=== PATIENT | female | born 1990 | race Hispanic/Latino ===

== ENCOUNTER 2017-03-31 21:44 | Emergency (ER) | payer OTHER ==
[~2017-03-31] VITALS: Ht 157.5 cm; Wt 78.0 kg
[~2017-03-31 21:44] MED LIST: AUGMENTIN875TAB PO; AZITHROMYCIN250 MG PO; CHOLESTYRAMINE4 G1 PO; IBUPROFEN200 MG OR; LORTAB 5 OR; MEDDOSEPAK PO; OMEGA 3340 MG OR; PRENATA7 OR; PROAIR HFA IN; PROVENTIL HFA IN; ZOFRAN ODT4 MG PO; ZPAK PO
[2017-03-31 23:17] LABS: HEMATOCRIT 39.3 % (37.0-47.0); HEMOGLOBIN 13.4 g/dl (12.0-16.0); IMMATURE GRANULOCYTES 0.3 % (0.0-1.0); MEAN CELL VOLUME 93.3 fL CALC (80.0-100.0); MEAN CORPUSCULAR HGB 31.8 pG CALC (26.0-32.0); MEAN CORPUSCULAR HGB CONC 34.1 g/L CALC (32.0-36.0); NEUT# 8.14 thou/uL (2.00-7.15); RED BLOOD COUNT 4.21 mill/uL (4.20-5.60)
[2017-03-31 23:26] LABS: URINE BILIRUBIN - DIPSTICK NEGATIVE (NEGATIVE); URINE BLOOD DIPSTICK LARGE (NEGATIVE); URINE CLARITY TURBID; URINE COLOR RED; URINE GLUCOSE - DIPSTICK NEGATIVE (NEGATIVE); URINE KETONE NEGATIVE (NEGATIVE); URINE LEUK ESTERASE TRACE (NEGATIVE); URINE NITRITE - DIPSTICK NEGATIVE (Negative); URINE PROTEIN - DIPSTICK 30 mg/dL (NEG-TRACE); URINE UROBILINOGEN - DIPSTICK 0.2 E.U./dL (0.2)
[2017-03-31 23:27] LABS: URINE BACTERIA FEW hpf; URINE RBC >100 RBC/hpf (0-5); URINE SQUAMOUS EPITHELIAL CELL MODERATE EPI/hpf (0-FEW)
[2017-03-31 23:32] LABS: ALBUMIN 4.7 g/dL (3.2-5.0); ALKALINE PHOSPHATASE 114 u/l (38-126); ANION GAP 17 (6-22 (CALC)); BILIRUBIN, TOTAL 0.3 mg/dL (0.0-1.4); BUN 10 mg/dL (7-17); BUN/CREATININE RATIO 21 (12-20 (CALC)); CALCIUM 9.7 mg/dL (8.4-10.2); CARBON DIOXIDE 24 mmol/l (22-30); CHLORIDE 105 mmol/l (95-108); CREATININE 0.5 mg/dL (0.5-1.0); GFR > 60 ML/MIN (>=60 (CALC)); GFR FOR AFR.AMER. > 60 ML/MIN (>=60 (CALC)); GLUCOSE 104 mg/dL (65-105); POTASSIUM 3.7 mmol/l (3.5-5.1); SGOT/AST 44 u/l (14-36); SGPT/ALT 46 u/l (9-52); SODIUM 143 mmol/l (137-146); TOTAL PROTEIN 8.4 g/dL (6.3-8.2)
[2017-03-31 23:48] LABS: BETA-HCG, QUANT(RESULT NUMBER) 2 mIU/mL
[2017-04-01 00:30] VITALS: BP 131/81
== END 2017-04-01 00:32 | disposition home or self-care (01) | DRG 778 ==
LOC: ED 21:44
PROVIDERS: Emergency Medicine
DX: O20.0 Threatened abortion (principal); J45.909 Unspecified asthma, uncomplicated; O99.519 Diseases of the respiratory system complicating pregnancy, unspecified trimester; Z3A.00 Weeks of gestation of pregnancy not specified